=== PATIENT | female | born 1960 | race Caucasian/White ===

== ENCOUNTER 2023-12-15 13:06 | Outpatient (CLI) | payer OTHER | END 2023-12-15 13:07 | disposition home or self-care (01) | LOC: BICMRI 13:06 | PROVIDERS: ATTEND Orthopaedic Surgery | DX: M75.102 Unspecified rotator cuff tear or rupture of left shoulder, not specified as traumatic (principal); M19.012 Primary osteoarthritis, left shoulder; R93.7 Abnormal findings on diagnostic imaging of other parts of musculoskeletal system ==

== ENCOUNTER 2023-12-28 13:22 | Outpatient (CLI) | payer OTHER ==
[2023-12-28 14:04] LABS: #Basophils 0.04 10x3/uL (0.0-0.2); #Eosinphils 0.13 10x3/uL (0.0-0.5); #Monocytes 0.46 10x3/uL (0.0-1.1); #Neutrophils 3.46 10x3/uL (1.5-8.4); %Basophils 0.7 % (0.0-2.0); %Eosinophils 2.3 % (0.0-6.0); %Lymphocytes 26.3 % (18.0-47.0); %Monocytes 8.2 % (0.0-10.0); %Neutrophils 62.1 % (40.0-75.0); Hematocrit 38.9 % (34.9-44.5); Mean Corpuscular HGB CONC 33.4 g/dL (32.0-36.0); Mean Corpuscular Hemoglobin 31.1 pg (27.0-33.0); Mean Corpuscular Volume 93.1 fL (81.6-98.3); Mean Platelet Volume 9.4 fL (7.4-10.4); Platelet Count 346 10x3/uL (150-450); RBC Distribution Width 13.1 % (11.5-14.5); Red Blood Cell (RBC) Count 4.18 10x6/uL (3.90-5.03); White Blood Cell (WBC) Count 5.6 10x3/uL (3.5-10.5)
[2023-12-28 14:43] LABS: Anion Gap 15 mmol/L (10-20); BUN (Urea Nitrogen) 22 mg/dL (9.8-20.1); Calc. Creatinine Clearance 0 mL/min (70-130); Carbon Dioxide 26 mmol/L (23-31); Chloride 104 mmol/L (98-107); Estimated GFR 85; Glucose 95 mg/dL (80-115); Potassium 4.8 mmol/L (3.5-5.1); Sodium 140 mmol/L (136-145)
== END 2023-12-28 13:23 | disposition home or self-care (01) ==
LOC: LABBT 13:22
PROVIDERS: ATTEND Orthopaedic Surgery
DX: Z01.818 Encounter for other preprocedural examination (principal); M19.012 Primary osteoarthritis, left shoulder; M75.102 Unspecified rotator cuff tear or rupture of left shoulder, not specified as traumatic
CPT/HCPCS: 80048; 85025; 93005; 93010

== ENCOUNTER 2024-01-05 05:50 | Observation (INO) | payer OTHER ==
[2023-12-28 13:52] VITALS: BMI 37.8
[2024-01-05] MEDS ORDERED: Sodium Chloride 0.9% 100 ML ONE ×2 (06:09→07:09)
[2024-01-05] MEDS ORDERED: Vancomycin (BATCH) 1.5 GM/300 ML BAG ONE (06:09)
[2024-01-05] MEDS ORDERED: Tranexamic Acid 1,000 MG/10 ML VIAL ONE (06:09)
[2024-01-05] MEDS ORDERED: PROPOFOL 20 ML ONE (06:22)
[2024-01-05] MEDS ORDERED: Midazolam HCl 2 mg/2 ml Vial ONE (06:22)
[2024-01-05] MEDS ORDERED: Ondansetron PF 4 MG/2 ML Vial ONE (06:22)
[2024-01-05] MEDS ORDERED: fentaNYL PF 100 MCG/2 ML SYRINGE ONE (06:22)
[2024-01-05] MEDS ORDERED: Lidocaine 1% PF 5 ML VIAL ONE (06:22)
[2024-01-05] MEDS ORDERED: Rocuronium Bromide 10 MG/ML (10ML VIAL) ONE (06:22)
[2024-01-05] MEDS ORDERED: Dexamethasone 20 MG/5 ML VIAL ONE (06:22)
[2024-01-05] MEDS ORDERED: Promethazine HCl 25 MG/ML VIAL IM PRN ×2 (06:42→08:45)
[2024-01-05] MEDS ORDERED: HYDROmorphone 2 MG/ML VIAL SLOW IVP PRN (06:42)
[2024-01-05] MEDS ORDERED: Meperidine HCl/PF 25 MG/ML VIAL SLOW IVP PRN (06:42)
[2024-01-05] MEDS ORDERED: Ketorolac Tromethamine 30 MG/ML VIAL IVP PRN (06:42)
[2024-01-05] MEDS ORDERED: Ondansetron HCl/PF 4 MG/2 ML Vial IVP PRN (06:42)
[2024-01-05] MEDS ORDERED: CEFAZOLIN 2 GM VIAL ONE (07:08)
[2024-01-05] MEDS ORDERED: PHENYLEPHRINE-NS 100 MCG/ML 10 ML SYRINGE ONE ×2 (08:00→08:55)
[2024-01-05] MEDS ORDERED: Ropivacaine 0.5% HCl/PF (150 MG/30 ML VIAL) ONE (08:01)
[2024-01-05] MEDS ORDERED: Lidocaine 1% (PF) 30 ML VIAL ONE (08:01)
[2024-01-05] MEDS ORDERED: Ropivacaine 0.2% HCl/PF 20 ML ONE (08:01)
[2024-01-05] MEDS ORDERED: fentaNYL 50 mcg/mL 1 mL Vial SLOW IVP PRN (08:39)
[2024-01-05] MEDS ORDERED: ePHEDrine Sulfate 50 MG/10 ML VIAL ONE (08:42)
[2024-01-05] MEDS ORDERED: Ropivacaine 0.2% 550 ML 550 ML NERVE BLCK SCH (08:45)
[2024-01-05] MEDS ORDERED: Zolpidem Tartrate 5 MG TAB PO PRN ×2 (08:45→12:14)
[2024-01-05] MEDS ORDERED: Ondansetron PF 4 MG/2 ML Vial IVP PRN ×2 (08:45→12:14)
[2024-01-05] MEDS ORDERED: traMADol HCl 50 MG TAB PO PRN ×3 (08:45→12:14)
[2024-01-05] MEDS ORDERED: Sodium Chloride 0.9% 250 ML 250 ML ONE (09:40)
[2024-01-05] MEDS ORDERED: Phenylephrine 10 MG/ML VIAL ONE (09:41)
[2024-01-05] MEDS ORDERED: Bisacodyl 10 MG SUPP PR PRN (12:14)
[2024-01-05] MEDS ORDERED: Ondansetron ODT 4 MG TAB PO PRN (12:14)
[2024-01-05] MEDS ORDERED: diphenhydrAMINE 50 MG CAP PO PRN (12:14)
[2024-01-05] MEDS ORDERED: Milk Of Magnesia 30 ML UDCUP PO PRN (12:14)
[2024-01-05] MEDS ORDERED: HYDROcodone/Acetaminophen 10/325 mg Tablet PO PRN (12:14)
[2024-01-05] MEDS ORDERED: Cyclobenzaprine 10 MG TAB PO PRN (12:14)
[2024-01-05] MEDS: Dextrose 5 %-0.45 % NaCl 1,000 ML IV SCH (13:23)
[2024-01-05] MEDS: Ketorolac Tromethamine 30 MG (1 mL) VIAL IVP SCH ×2 (13:45→13:59)
[2024-01-05] MEDS: CEFAZOLIN 2 GM in Sodium Chloride 0.9% 100 ML IVPB SCH (13:59)
[2024-01-05] MEDS: Famotidine 20 MG TAB PO SCH ×2 (13:59→21:13)
[2024-01-05] MEDS: HYDROcodone/Acetaminophen 10/325 mg Tablet PO PRN ×2 (14:06→17:11)
[2024-01-05] MEDS: DULoxetine 30 MG CAP PO SCH (21:13)
[2024-01-05] MEDS: Gabapentin 300 MG CAP PO SCH (21:13)
[2024-01-06 11:26] VITALS: BP 111/67; TEMP 97.7
== END 2024-01-06 12:58 | disposition home or self-care (01) ==
LOC: SDC 05:50 → INTOOBSV 12:10 → SURG A 12:10
PROVIDERS: ADMIT Orthopaedic Surgery; ATTEND Orthopaedic Surgery
PROC: 0RRK00Z Replacement of Left Shoulder Joint with Reverse Ball and Socket Synthetic Substitute, Open Approach (ICD-10-PCS; principal; 2024-01-05)
PROC: 0LS40ZZ Reposition Left Upper Arm Tendon, Open Approach (ICD-10-PCS; 2024-01-05)
DX: M19.012 Primary osteoarthritis, left shoulder (principal); M75.102 Unspecified rotator cuff tear or rupture of left shoulder, not specified as traumatic; M75.101 Unspecified rotator cuff tear or rupture of right shoulder, not specified as traumatic; M19.011 Primary osteoarthritis, right shoulder; E78.00 Pure hypercholesterolemia, unspecified; I10 Essential (primary) hypertension; Z96.653 Presence of artificial knee joint, bilateral; Z96.643 Presence of artificial hip joint, bilateral; Z98.1 Arthrodesis status; Z90.710 Acquired absence of both cervix and uterus; Z91.048 Other nonmedicinal substance allergy status; Z88.5 Allergy status to narcotic agent; Z79.899 Other long term (current) drug therapy
CPT/HCPCS: A4306; C1713; C1776; J1100; J1885; J2001; J2250; J2371; J2405; J2704; J2795; J3370; J3490; J7042; J7050

== ENCOUNTER 2024-03-09 05:35 | Observation (INO) | payer OTHER ==
[2024-03-02 10:52] VITALS: BMI 41.1
[2024-03-09] MEDS ORDERED: Vancomycin (BATCH) 1.5 GM/300 ML BAG ONE (06:10)
[2024-03-09] MEDS ORDERED: fentaNYL 50 mcg/mL 1 mL Vial ONE ×2 (06:37→06:54)
[2024-03-09] MEDS ORDERED: Ropivacaine 0.5% HCl/PF (150 MG/30 ML VIAL) ONE (06:38)
[2024-03-09] MEDS ORDERED: Midazolam HCl 2 mg/2 ml Vial ONE ×2 (06:38→06:40)
[2024-03-09] MEDS ORDERED: Ropivacaine 0.2% HCl/PF 20 ML ONE (06:38)
[2024-03-09] MEDS ORDERED: Lidocaine 1% (PF) 30 ML VIAL ONE (06:38)
[2024-03-09] MEDS ORDERED: CEFAZOLIN 2 GM VIAL ONE (06:39)
[2024-03-09] MEDS ORDERED: Sodium Chloride 0.9% 100 ML ONE ×2 (06:39→06:40)
[2024-03-09] MEDS ORDERED: Tranexamic Acid 1,000 MG/10 ML VIAL ONE (06:40)
[2024-03-09] MEDS ORDERED: Ketamine In 0.9 % NaCl 50 MG/5 ML SYRINGE ONE (06:40)
[2024-03-09] MEDS ORDERED: Famotidine/PF 20 mg/2ml Vial ONE (06:41)
[2024-03-09] MEDS ORDERED: Rocuronium Bromide 10 MG/ML (10ML VIAL) ONE (06:54)
[2024-03-09] MEDS ORDERED: Dexamethasone 4 mg/ml Vial ONE (06:54)
[2024-03-09] MEDS ORDERED: Ondansetron PF 4 MG/2 ML Vial ONE (06:54)
[2024-03-09] MEDS ORDERED: Ketorolac Tromethamine 30 MG (1 mL) VIAL ONE (06:54)
[2024-03-09] MEDS ORDERED: Lidocaine 2% PF 5 ML VIAL ONE (06:54)
[2024-03-09] MEDS ORDERED: PROPOFOL 20 ML ONE (06:54)
[2024-03-09] MEDS ORDERED: Glycopyrrolate 0.2 MG/ML 5 ML SYRINGE ONE (07:18)
[2024-03-09] MEDS ORDERED: ePHEDrine Sulfate 50 MG/10 ML VIAL ONE (07:33)
[2024-03-09] MEDS ORDERED: PHENYLEPHRINE-NS 100 MCG/ML 10 ML SYRINGE ONE (07:33)
[2024-03-09] MEDS ORDERED: SUGAMMADEX SODIUM 200 MG/2 ML VIAL ONE (07:39)
[2024-03-09] MEDS ORDERED: fentaNYL 50 mcg/mL 1 mL Vial SLOW IVP PRN (07:42)
[2024-03-09] MEDS ORDERED: traMADol HCl 50 MG TAB PO PRN ×2 (07:45)
[2024-03-09] MEDS ORDERED: Promethazine HCl 25 MG/ML VIAL IM PRN ×2 (07:45→09:26)
[2024-03-09] MEDS ORDERED: Ondansetron PF 4 MG/2 ML Vial IVP PRN ×2 (07:45→11:43)
[2024-03-09] MEDS ORDERED: Ropivacaine 0.2% 550 ML 550 ML NERVE BLCK SCH (07:45)
[2024-03-09] MEDS ORDERED: NOREPINEPHRINE 8 MG/250 ML-D5W 0 ML ONE (07:57)
[2024-03-09] MEDS ORDERED: Norepinephrine 4 MG/4 ML VIAL ONE (08:02)
[2024-03-09] MEDS ORDERED: HYDROmorphone 2 MG/ML VIAL SLOW IVP PRN (09:26)
[2024-03-09] MEDS ORDERED: Ondansetron HCl/PF 4 MG/2 ML Vial IVP PRN (09:26)
[2024-03-09] MEDS ORDERED: Methocarbamol 500 MG TAB PO PRN (11:43)
[2024-03-09] MEDS ORDERED: Zolpidem Tartrate 5 MG TAB PO PRN (11:43)
[2024-03-09] MEDS ORDERED: Bisacodyl 10 MG SUPP PR PRN (11:43)
[2024-03-09] MEDS ORDERED: diphenhydrAMINE 50 MG CAP PO PRN (11:43)
[2024-03-09] MEDS ORDERED: Ondansetron ODT 4 MG TAB PO PRN (11:43)
[2024-03-09] MEDS ORDERED: Milk Of Magnesia 30 ML UDCUP PO PRN (11:43)
[2024-03-09] MEDS: Famotidine 20 MG TAB PO SCH ×2 (12:08→21:57)
[2024-03-09] MEDS: Sodium Chloride 0.9% 1,000 ML IV SCH (12:08)
[2024-03-09] MEDS: Ketorolac Tromethamine 30 MG (1 mL) VIAL IVP SCH (12:08)
[2024-03-09] MEDS: CEFAZOLIN 2 GM in Sodium Chloride 0.9% 100 ML IVPB SCH (14:34)
[2024-03-09] MEDS: HYDROcodone/Acetaminophen 10/325 mg Tablet PO PRN ×2 (14:38→17:54)
[2024-03-10] MEDS: Zolpidem Tartrate 5 MG TAB PO PRN (00:07)
[2024-03-10 10:00] VITALS: BP 120/60; TEMP 97.5
== END 2024-03-10 12:10 | disposition home or self-care (01) ==
LOC: SDC 05:35 → SURG B 11:43
PROVIDERS: ADMIT Orthopaedic Surgery; ATTEND Orthopaedic Surgery
PROC: 0RRJ00Z Replacement of Right Shoulder Joint with Reverse Ball and Socket Synthetic Substitute, Open Approach (ICD-10-PCS; principal; 2024-03-10)
PROC: 0LS30ZZ Reposition Right Upper Arm Tendon, Open Approach (ICD-10-PCS; 2024-03-10)
PROC: 3E0T3BZ Introduction of Anesthetic Agent into Peripheral Nerves and Plexi, Percutaneous Approach (ICD-10-PCS; 2024-03-10)
DX: M19.011 Primary osteoarthritis, right shoulder (principal); M75.102 Unspecified rotator cuff tear or rupture of left shoulder, not specified as traumatic; M75.21 Bicipital tendinitis, right shoulder; Z79.899 Other long term (current) drug therapy; Z96.612 Presence of left artificial shoulder joint
CPT/HCPCS: A4306; C1713; C1776; J1100; J1885; J2001; J2250; J2405; J2704; J2795; J3010; J3370; J3490; J7030